=== PATIENT | male | born 1980 | race African-American/Black ===

== ENCOUNTER 2021-07-15 16:40 | Emergency (ER) | payer BC ==
[~2021-07-15] VITALS: Ht 185.4 cm; Wt 72.1 kg
[2021-07-15] MEDS ORDERED: IBU800 MG PO (18:59)
== END 2021-07-15 19:04 | disposition home or self-care (01) ==
LOC: ER 16:40
DX: S93.491A Sprain of other ligament of right ankle, initial encounter (principal); W10.8XXA Fall (on) (from) other stairs and steps, initial encounter; Y93.01 Activity, walking, marching and hiking; Y92.488 Other paved roadways as the place of occurrence of the external cause; Y99.8 Other external cause status; Z03.818 Encounter for observation for suspected exposure to other biological agents ruled out